=== PATIENT | male | born 1950 | race Caucasian/White ===

== ENCOUNTER 2016-07-30 10:08 | Emergency (ER) | payer OTHER, MEDICARE ==
[2016-07-30] MEDS ORDERED: HYDROmorphone 1 MG/ML Syringe IM ONE (10:56)
[2016-07-30] MEDS ORDERED: Ketorolac 60 MG/2 ML SDV IM ONE (10:57)
[2016-07-30 12:49] VITALS: BP 149/76
--- NOTE | 2016-08-08 01:01 | ER ---
Date of Service: 07/30/2016 SUBJECTIVE: Mr. Carney presents to the emergency room with complaints of neck pain that radiates into his right trapezius. The patient denies any recent trauma. He states that he has been experiencing intermittent low and mid back pain, but states that the neck pain is new. He states the discomfort is worse with rotation towards the right, but he is experiencing discomfort with both rotation to the right and to the left. Again, he denies any recent trauma. He has not been experiencing any fever or chills. He is not experiencing any paresthesias to his upper or lower extremities, difficulties with breathing or other worrisome signs or symptoms. PAST MEDICAL HISTORY: 1. Hypothyroidism. 2. Hepatitis. 3. Non-alcoholic fatty liver disease. 4. Glaucoma. 5. Cataracts. 6. Osteoarthritis with knee and shoulder replacement. 7. History of scoliosis and spinal stenosis and is status post laminectomy. 8. History of addiction. 9. Anxiety. 10.Panic attack. 11.History of SVT status post ablation. 12.Sleep apnea. MEDICATIONS: 1. Timoptic. 2. Sildenafil. 3. Multivitamin. 4. Levothyroxine. 5. Ativan. 6. Ibuprofen. 7. Zyrtec. ALLERGIES: NKDA. REVIEW OF SYSTEMS: The patient has increased discomfort with lateral bend and rotation to the right, but does have discomfort with any lateral bending, flexion, extension or rotation of the cervical spine. X-rayed, no obvious stepoff or deformity noted. He does have severe muscle spasm to the paraspinal muscles. Patella brachioradialis reflexes are 2+. Mobile Nurse strength is symmetrical at 5/5. PHYSICAL EXAMINATION: General: This is a 66-year-old male patient, who is in moderate amount of distress. Vital Signs: Blood pressure is 147/81, pulse rate is 94, temperature is 37.1, respiratory rate 20, O2 saturations 99%. Skin: Warm, pink, and dry. HEENT. Head is normocephalic and atraumatic. Neck: He does have severe muscle spasm to his paraspinal muscles of the cervical spine. No obvious deformity to the cervical spine itself. No obvious subluxation noted. Again, has increased discomfort with lateral bend to the right and turning his head to the right. He does have severe discomfort with flexion and extension of the cervical spine. No obvious step-offs or crepitus noted. The patellar and brachioradialis reflexes are 2+. EMERGENCY ROOM COURSE: The patient was given injection of Toradol 60 mg IM and Dilaudid 1 mg IM. He did report significant improvement in his discomfort. He remained stable under my care in the emergency room. ASSESSMENT: Cervical spinal pain. PLAN: Cervical MRI was ordered. Also, I did start him on physical therapy. The patient will continue with the oxycodone and Flexeril. He also is to start ibuprofen 600 mg every 8 hours. He was given group of exercises to perform to help with his cervical spinal pain and was told that Physical Therapy and Radiology will be contacting him for PT appointment as well as cervical spine MRI. I will follow up in the clinic in 7-10 days. All questions were answered. NADEGEK: 08/07/2016 21:04:42 MODL: 08/08/2016 00:36:05 /[id number]
== END 2016-07-30 11:45 ==
LOC: VM.ED 10:08
DX: M54.2 Cervicalgia (principal); M62.838 Other muscle spasm; E03.9 Hypothyroidism, unspecified; M19.90 Unspecified osteoarthritis, unspecified site; F41.9 Anxiety disorder, unspecified
CPT/HCPCS: 96372; 99283; J1170; J1885

== ENCOUNTER 2017-02-09 09:15 | Inpatient (IN) | payer OTHER, MEDICARE ==
[2017-02-09] MEDS: Lactated Ringers 1,000 ML IV SCH ×3 (09:52→22:54)
[2017-02-09] MEDS: LORazepam 2 MG/ML SDV IVPUSH PRN ×2 (10:08→14:20)
[2017-02-09 10:23] LABS: CHLORIDE,CL 104 mmol/L (98-107); SODIUM,NA 144 mmol/L (136-145)
[2017-02-09] MEDS ORDERED: ESZOPICLONE 2 MG PO PRN (10:26)
[2017-02-09] MEDS ORDERED: traZODone 50 MG Tab PO PRN (10:26)
[2017-02-09] MEDS ORDERED: Zolpidem 5 MG Tab PO PRN (10:26)
[2017-02-09] MEDS ORDERED: diphenhydrAMINE 25 MG Cap PO PRN (10:26)
[2017-02-09] MEDS ORDERED: SILDENAFIL CITRATE PO PRN (10:26)
[2017-02-09] MEDS ORDERED: LORazepam 0.5 MG Tab PO PRN (10:26)
[2017-02-09] MEDS ORDERED: Thiamine 200 MG/2 ML MDV IV SCH (10:45)
[2017-02-09] MEDS ORDERED: MVI, Adult with Vitamin K 10 ML SDV IV SCH (10:45)
[2017-02-09] MEDS ORDERED: Magnesium Sulfate/Water 2 GM in Premix Bag 1 BAG IV ONE (10:45)
[2017-02-09] MEDS ORDERED: FLU Vacc TS 2017-18 (65yr UP)/PF 180 MCG/0.5 ML Syringe IM ONE (10:45)
--- NOTE | 2017-02-09 10:52 | PCM.HP ---
"H&P History of Present Illness - General Date of Service: 02/09/17 Admit Problem/Dx: Admission Diagnosis/Problem Admission Diagnosis/Problem Alcohol withdrawal syndrome - History of Present Illness Initial Comments - Free Text/Narative: HPI HPI Comments:~Patient is in for alcohol dependence. ~He has been binge drinking for past week or so while has been gone, this is his usual pattern. ~He's been drinking probably 1-1/2 or more liters of wine per day. ~Occasionally he' ll mix with some hard alcoholic whiskey when she's gone. ~Maybe a couple beers daily as well. ~Last drink was 2:30 AM last night which he was taking for some withdrawal symptoms. ~Currently feels little bit shaky. ~Denies any depression anxiety or self harming ideation. ~He hasn't really had any long periods of sobriety until generally not drink every day but then he will drink morbid binge -type pattern, especially more heavily when is a town. ~Said significant withdrawals in the past but no seizures or labile hypertension. ~He was on acamprosate in the past but this made him feel fatigued. ~He thinks he may have received a prescription for naltrexone but he never took it. ~Last did tx in at [facility], didn't like it, felt locked-up and was with dissimilar people who had meth and heroin issues. ~Hasn't done much outpt tx since. Alcohol Problem~ The patient's primary symptoms include agitation. Pertinent negatives include no self-injury. Pertinent negatives include no fever. Medications MedicationsPriortoVisit Outpatient Medications Prior to Visit Medication Sig Dispense Refill aloe vera 470 MG CAPS Take 1 tablet by mouth 1 time per day zolpidem (AMBIEN) 5 mg tablet Take 1 tablet (5 mg) by mouth At bedtime as needed for insomnia 10 tablet 5 traZODone (DESYREL) 50 mg tablet Take 0.5 tablets (25 mg) by mouth At bedtime as needed (sleep) 45 tablet 3 clobetasol propionate (TEMOVATE) 0.05% solution Apply once or twice daily to scalp as needed for itching and rash 60 mL 5 eszopiclone (LUNESTA) 2 mg tablet TAKE 1 TABLET BY MOUTH AT B EDTIME NEEDED FOR INSOMN IA 30 tablet 0 betamethasone dipropionate (DIPROSONE) 0.05 % cream Apply to affected area 2 times a day 15 g 0 cyclobenzaprine (FLEXERIL) 5 mg tablet Take 1 tablet as bedtime as needed for muscle spasm 15 tablet 0 levothyroxine 25 mcg tablet Take 1 tablet (25 mcg total) by mouth 1 time a day in the morning 90 tablet 3 HYDROcodone-acetaminophen (NORCO) 5-325 mg tablet Take 1 tablet by mouth every 6 hours as needed for severe pain 25 tablet 0 magnesium oxide 250 MG TABS Take 250 mg by mouth 2 times a day diphenhydrAMINE (BENADRYL) 25 mg capsule Take 25 mg by mouth At bedtime as needed triamcinolone acetonide (KENALOG,ARISTOCORT) 0.1 % cream Apply 1 application to affected area 2 times a day For up to 2 weeks for flairs of rash 453.6 g 0 LORazepam (ATIVAN) 0.5 mg tablet Take 1 tablet (0.5 mg total) by mouth 4 times a day as needed for anxiety 10 tablet 0 sildenafil 20 mg tablet Take 2 tablets (40 mg total) by mouth 1 time a day as needed for other (Specify ) (ED) 90 tablet 0 ibuprofen (MOTRIN) 800 mg tablet Take 800 mg by mouth Every 4 hours as needed. Multiple Vitamin (MULTIVITAMIN) tablet Take 1 tablet by mouth 1 time per day. ~ 0 timolol maleate (TIMOPTIC) 0.5 % ophthalmic solution Place 1 drop into both eyes 2 times a day. No facility-administered medications prior to visit. Allergies No Known Allergies Problem List Patient Active Problem List Diagnosis Low back pain without sciatica Lumbar disc degeneration Lateral recess stenosis right L4-5 but no clinical radiculopathy S/p lumbar discectomy Scoliosis Flair started in December then Neurosurgery visit 03/22 no surgery planned Epidural 02/19 helped for 1 week MRI done 02/19 also Scoliosis DDD (degenerative disc disease), lumbar Lumbar sprain S/P lumbar discectomy L4-5 diskectomy on the L in [place] around 1999 Hypothyroid Hepatitis hx of false positive Hep C testing with pos AB but negative RNA test while in [place] 2011 Thrombocytopenia (HCC) Fatty liver Noted on US in 05/22 and also past US done in 02/17 History of alcohol dependence (HCC) See social hx for further details. ~ noticed probably around 2007. ~ Went through a treatment program [facility] and was able to quit in 11/19. ~Took Campral at one point 11/20 Hosp x [address] [facility], D/C on Campral 333 mg, 2 daily, he stopped it due to fatigue Allergic rhinitis Elevated blood pressure reading without diagnosis of hypertension With panic attacks Panic attacks Possibly related to alcohol withdrawl History of cardiac radiofrequency ablation Unsure of details was done in [place], trial of beta karla first. ~He is not sure if it was for a. 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 BACK SURGERY CATARACT EXTRACTION EYE SURGERY for a partially detached retina FOREIGN BODY RMVL Left 02/12/2016 Procedure: LEFT FOOT FOREIGN BODY REMOVAL;; ~Surgeon: Yo Fuller DPM KNEE SURGERY both knees meniscus surgeries MORTONS NEUROMA EXC Left 07/29/2016 Procedure: LEFT FOOT SKIN LESION EXCISION, LEFT 5TH METATARSAL PLANING;; ~ Surgeon: Yo Fuller DPM OSTEOTOMY Left 07/29/2016 Procedure: L;; ~Surgeon: Yo Fuller DPM SHOULDER SURGERY both shoulders SPINE SURGERY FamilyHistory Family History Problem Relation Age of Onset Cancer (not otherwise listed) Father melanoma Alcohol Abuse Brother Alcohol Abuse Brother Arthritis Mother Arthritis Maternal Grandmother Bladder Cancer Neg Hx Kidney Cancer Neg Hx Nephrolithiasis Neg Hx Prostate Cancer Neg Hx Testicular Cancer Neg Hx SocialHistory Social History Social History Marital status: Spouse name: N/A Number of children: N/A Years of education: N/A Occupational History Not on file. 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 ~ Marizol is president of [employer]. Moved to [place] in 2013 lived in [place] for 6 yrs prior and [place] prior to that. ~No children. ~Drinks daily had a DUI when living in [place] around 2006 did quit drinking after that but restarted to help with sleep. ~He had never been to alcohol treatment until 11/19 when he was a [facility] in [place]. ~His brother have similar problems with alcohol and his Grandfather's siblings had alcohol problems but his parents didn't. ROS Review of Systems Constitutional: Negative for chills~and fever. Cardiovascular: Negative for chest pain. Gastrointestinal: Negative for blood in stool. Neurological: Positive for tremors. Psychiatric/Behavioral: Positive for agitation~and sleep disturbance. Negative for self-injury. The patient is nervous/anxious. ~ Physical / Results BP 150/82 ~Pulse 105 ~Temp 97.6 F (36.4 C) (Tympanic) ~Wt 94.3 kg (208 lb) ~ SpO2 95% ~BMI 29.78 kg/m2|| Physical Exam~ Constitutional: He is oriented to person, place, and time. He appears well- developed~and well-nourished. No distress. Darrick, anxious~ Cardiovascular: Normal rate~and regular rhythm. ~ Pulmonary/Chest: Effort normal~and breath sounds normal. Neurological: He is alert~and oriented to person, place, and time. Mild tremor~ Skin: Skin is warm~and dry. He is not diaphoretic. Psychiatric: He has a normal mood and affect. His behavior is normal. Judgment~ and thought content~normal. Assessment / Plan Problem List Items Addressed This Visit~ None Plan: Alcohol intoxication, dependence and withdrawals Admit for CIWA and banana bag Start naltrexone Social work consult to discuss outpatient options Consider psych eval outpatient after dried out - Related Data Allergies/Adverse Reactions: Allergies Allergy/AdvReac Type Severity Reaction Status Date / Time No Known Drug Allergies Allergy Other Verified 09/29/15 10:37 Home Medications: Home Meds Levothyroxine 25 mcg PO DAILY 11/16/15 [History] Multivitamin [Multi-Vitamin Daily] 1 tab PO DAILY 11/16/15 [History] Sildenafil Citrate [Sildenafil] 40 mg PO DAILY PRN 11/16/15 [History] Timolol Maleate [Timoptic 0.5% Ophth Soln] 1 drop EYEBOTH BID 11/16/15 [History] Cyclobenzaprine [Flexeril] 5 mg PO BEDTIME PRN 07/30/16 [History] Acetaminophen/HYDROcodone [[place] 325-5 MG] 1 tab PO Q6H PRN 02/09/17 [History] Betamethasone Dipropionate [Diprosone 0.05% Crm] 1 applicful TOP BID 02/09/17 [ History] Eszopiclone [Lunesta] 2 mg PO BEDTIME PRN 02/09/17 [History] Ibuprofen [Motrin] 800 mg PO Q4H PRN 02/09/17 [History] LORazepam [Ativan] 0.5 mg PO QID PRN 02/09/17 [History] Levothyroxine 25 mcg PO ACBREAKFAST 02/09/17 [History] Magnesium 250 mg PO BID 02/09/17 [History] Zolpidem [Ambien] 5 mg PO BEDTIME PRN 02/09/17 [History] diphenhydrAMINE [Benadryl] 25 mg PO BEDTIME PRN 02/09/17 [History] traZODone 25 mg PO BEDTIME PRN 02/09/17 [History] Past Medical History HEENT History: Reports: Glaucoma Other Cardiovascular History: ablasion. elevated BP without diagnosis of HTN Respiratory History: Reports: Sleep Apnea Other Gastrointestinal History: fatty liver, hepatitis Musculoskeletal History: Reports: Back Pain, Chronic Psychiatric History: Reports: Addiction, Anxiety, Hallucinations, Panic Attack Other Psychiatric History: Alcohol dependence Endocrine/Metabolic History: Reports: Hypothyroidism Hematologic History: Reports: Other (See Below) Other Hematologic History: thrombocytopenia - Infectious Disease History Other Infectious Disease History: hepatitis-unknown type - Past Surgical History HEENT Surgical History: Reports: Cataract Surgery Neurological Surgical History: Reports: Discectomy, Lumbar Spine, Scoliosis Other Neurological Surgeries/Procedures: DDD Musculoskeletal Surgical History: Reports: Joint Replacement, Knee Replacement, Shoulder Surgery Social & Family History - Family History Family Medical History: Noncontributory - Tobacco Use Smoking Status *Q: Never Smoker Years of Tobacco use: 7 Used Tobacco, but Quit: No Second Hand Smoke Exposure: No - Caffeine Use Caffeine Use: Reports: None Other Caffeine Use: no caffine - Alcohol Use Days Per Week of Alcohol Use: 1 Number of Drinks Per Day: 1 Total Drinks Per Week: 1 Date of Last Drink: 02/09/17 Time of Last Drink: 02:30 - Recreational Drug Use Recreational Drug Use: No H&P Review of Systems - Review of Systems: Review Of Systems: See Below Exam - Exam Exam: See Below - Vital Signs Weight: 92.533 kg - Patient Data Lab Results Last 24 hrs: Laboratory Results - last 24 hr 02/09/17 02/09/17 Range/Units 09:53 09:53 WBC 6.7 (4.0-10.0) x10^3/uL RBC 4.52 (4.5-6.0) x10^6/uL Hgb 15.4 D (14.0-18.0) g/dL Hct 43.6 (40.0-52.0) % MCV 96.5 H D (78.0-93.0) fL MCH 34.1 H (26.0-32.0) pg MCHC 35.3 (32.0-36.0) g/dL RDW Coeff of Buzz 13.4 (10.0-15.0) % Plt Count 212 (130-400) x10^3/uL Neut % (Auto) 58.6 (50.0-80.0) % Lymph % (Auto) 29.7 (25.0-50.0) % [place] % (Auto) 9.0 (2.0-11.0) % Eos % (Auto) 2.4 (0.0-4.0) % Baso % (Auto) 0.3 (0.2-1.2) % Sodium 144 (136-145) mmol/L Potassium 4.1 (3.5-5.1) mmol/L Chloride 104 (98-107) mmol/L Carbon Dioxide 27 (21-32) mmol/L BUN 14 (7-18) mg/dL Creatinine 0.8 (0.70-1.30) mg/dL Est Cr Clr Drug Dosing 93.78 mL/min Estimated GFR (MDRD) > 60 Glucose 107 H (74-106) mg/dL Calcium 8.8 (8.5-10.1) mg/dL Corrected Calcium 8.72 (8.5-10.1) mg/dL Phosphorus 3.1 (2.6-4.7) mg/dL Magnesium 1.7 L (1.8-2.4) mg/dL Total Bilirubin 0.6 (0.2-1.0) mg/dL AST 32 (15-37) U/L ALT 32 (16-63) U/L Alkaline Phosphatase 97 (46-116) U/L Total Protein 7.5 (6.4-8.2) g/dL Albumin 4.1 (3.4-5.0) g/dL Globulin 3.4 Albumin/Globulin Ratio 1.21 Amylase 44 (25-115) U/L Ethyl Alcohol 258 H (0-3) mg/dL Result Diagrams: 02/09/17 09:53 02/09/17 09:53 *Q Meaningful Use (ADM) - VTE *Q VTE Criteria *Q: - Stroke *Q Stroke Criteria *Q: - AMI *Q AMI Criteria *Q: Problem List Initiated/Reviewed/Updated: Yes Orders Last 24hrs: Active Orders 24 hr Category Date Time Status Patient Status [ADT] Routine ADT 02/09/17 09:21 Active Patient Status [ADT] Routine ADT 02/09/17 10:43 Active Ambulate [RC] BID Care 02/09/17 10:44 Active Oxygen Therapy [RC] .PRN Care 02/09/17 10:43 Active Up With Assistance [RC] ASDIRECTED Care 02/09/17 10:43 Active VTE/DVT Education [RC] .PRN Care 02/09/17 10:43 Active Vital Signs [RC] 06,10,14,18,22,02 Care 02/09/17 10:43 Active Consult to Charging Crane Operator [CONS] Routine Cons 02/09/17 10:43 Active Regular Diet [DIET] Diet 02/09/17 Lunch Active BASIC METABOLIC PANEL,BMP [CHEM] AM Lab 02/10/17 05:11 Ordered DRUG SCREEN, URINE [URCHEM] Routine Lab 02/09/17 09:37 Uncollected MAGNESIUM [CHEM] AM Lab 02/10/17 05:11 Ordered UA W/O MICROSCOPIC [URIN] Routine Lab 02/09/17 09:35 Uncollected Betamethasone Dipropionate [Diprosone 0.05% Crm] Med 02/09/17 20:00 Ordered 1 applicful TOP BID Cyclobenzaprine [Flexeril] Med 02/09/17 10:26 Ordered 5 mg PO BEDTIME PRN Eszopiclone [Lunesta] Med 02/09/17 10:26 Ordered 2 mg PO BEDTIME PRN Ibuprofen [Motrin] Med 02/09/17 10:26 Ordered 800 mg PO Q4H PRN LORazepam [Ativan] Med 02/09/17 10:26 Ordered 0.5 mg PO QID PRN LORazepam [Ativan] Med 02/09/17 09:35 Active 1 mg IVPUSH Q4H PRN Lactated Ringers [Ringers, Lactated] 1,000 ml Med 02/09/17 09:45 Active IV ASDIRECTED Levothyroxine Med 02/10/17 07:00 Ordered 25 mcg PO ACBREAKFAST Levothyroxine Med 02/10/17 08:00 Ordered 25 mcg PO DAILY MVI, Adult with Vitamin K [Infuvite Adult] Med 02/09/17 10:45 Ordered 10 ml IV DAILY Magnesium Sulfate/Water [Magnesium Sulfate 2 GM in Med 02/09/17 10:45 Ordered Water 50 ML] 2 gm Premix Bag 1 bag IV ONETIME Magnesium [Magnesium] Med 02/09/17 20:00 Ordered 250 mg PO BID Multivitamin [Multi-Vitamin Daily] Med 02/10/17 08:00 Ordered 1 tab PO DAILY Sildenafil Citrate [Sildenafil] Med 02/09/17 10:26 Ordered 40 mg PO DAILY PRN Thiamine [Vitamin B-1] Med 02/09/17 10:45 Ordered 100 mg IV DAILY Timolol Maleate [Timoptic 0.5% Ophth Soln] Med 02/09/17 20:00 Ordered DOSE ml EYEBOTH BID Zolpidem [Ambien] Med 02/09/17 10:26 Ordered 5 mg PO BEDTIME PRN diphenhydrAMINE [Benadryl] Med 02/09/17 10:26 Ordered 25 mg PO BEDTIME PRN traZODone Med 02/09/17 10:26 Ordered 25 mg PO BEDTIME PRN Resuscitation Status Routine Resus Stat 02/09/17 10:43 Ordered Medication Orders Diphenhydramine HCl (Benadryl) 25 mg PO BEDTIME PRN PRN Reason: Sleep Lactated Ringer's (Ringers, Lactated) 1,000 mls @ 150 mls/hr IV ASDIRECTED ELEN Last Admin: 02/09/17 09:52 Dose: 150 mls/hr Magnesium Sulfate 2 gm/ Premix 50 mls @ 25 mls/hr IV ONETIME ONE Stop: 02/09/17 12:44 Levothyroxine Sodium (Levothyroxine) 25 mcg PO ACBREAKFAST ELEN Levothyroxine Sodium (Levothyroxine) 25 mcg PO DAILY ELEN Lorazepam (Ativan) 1 mg IVPUSH Q4H PRN PRN Reason: Withdrawal Symptoms Last Admin: 02/09/17 10:08 Dose: 1 mg Lorazepam (Ativan) 0.5 mg PO QID PRN PRN Reason: Anxiety Multivitamins/Minerals (Infuvite Adult) 10 ml IV DAILY ELEN Non-Formulary Medication (Betamethasone Dipropionate [Diprosone 0.05% Crm]) 1 applicful TOP BID ELEN Non-Formulary Medication (Cyclobenzaprine [Flexeril]) 5 mg PO BEDTIME PRN PRN Reason: Muscle Spasm Non-Formulary Medication (Eszopiclone [Lunesta]) 2 mg PO BEDTIME PRN PRN Reason: Insomnia Non-Formulary Medication (Ibuprofen [Motrin]) 800 mg PO Q4H PRN PRN Reason: Pain Non-Formulary Medication (Magnesium [Magnesium]) 250 mg PO BID ELEN Non-Formulary Medication (Multivitamin [Multi-Vitamin Daily]) 1 tab PO DAILY [facility]EN Non-Formulary Medication (Sildenafil Citrate [Sildenafil]) 40 mg PO DAILY PRN PRN Reason: Other Thiamine HCl (Vitamin B-1) 100 mg IV DAILY [facility] Timolol Maleate (Timoptic 0.5% Ophth Soln) ml EYEBOTH BID ELEN Trazodone HCl (Trazodone) 25 mg PO BEDTIME PRN PRN Reason: Sleep Zolpidem Tartrate (Ambien) 5 mg PO BEDTIME PRN PRN Reason: Sleep"
[2017-02-09] MEDS ORDERED: Cyclobenzaprine 10 MG Tab PO PRN (10:55)
[2017-02-09] MEDS ORDERED: Ibuprofen 200 MG Tab PO PRN (10:57)
[2017-02-09] MEDS ORDERED: VITAMIN K IV ONE ×3 (11:30)
[2017-02-09] MEDS ORDERED: MVI IV ONE ×3 (11:30)
[2017-02-09] MEDS ORDERED: NS IV ONE ×3 (11:30)
[2017-02-09] MEDS ORDERED: THIAMINE IV ONE ×3 (11:30)
[2017-02-09] MEDS ORDERED: KCL IV ONE ×3 (11:30)
[2017-02-09] MEDS ORDERED: Ondansetron 4 MG/2 ML SDV IVPUSH PRN (12:34)
[2017-02-09] MEDS ORDERED: LORazepam 2 MG/ML SDV IVPUSH PRN (17:55)
[2017-02-09] MEDS: Ondansetron 4 MG/2 ML SDV IVPUSH PRN ×2 (18:19→22:15)
[2017-02-09] MEDS ORDERED: LORazepam 2 MG/ML SDV ONE (18:22)
[2017-02-09] MEDS ORDERED: Ondansetron 4 MG/2 ML SDV ONE (18:22)
[2017-02-09] MEDS: Magnesium Oxide 400 MG Tab PO SCH (19:45)
[2017-02-09] MEDS ORDERED: Non-Formulary Medication 1 Each (Betamethasone Dipropionate [Diprosone 0.05% Crm] 1 APPLIC TOP SCH (20:00)
[2017-02-09] MEDS: Timolol Maleate 0.5% Ophth Soln 5 ML Bottle EYEBOTH SCH (20:11)
[2017-02-10] MEDS: Lactated Ringers 1,000 ML IV SCH (04:56)
[2017-02-10] MEDS ORDERED: Levothyroxine 25 MCG Tab PO SCH ×2 (07:00→08:00)
[2017-02-10 07:23] LABS: CHLORIDE,CL 102 mmol/L (98-107); SODIUM,NA 139 mmol/L (136-145)
[2017-02-10] MEDS ORDERED: Multivitamins with Iron/Calcium/Folic Acid/Minerals Tab PO SCH (08:00)
[2017-02-10] MEDS: Timolol Maleate 0.5% Ophth Soln 5 ML Bottle EYEBOTH SCH (08:09)
[2017-02-10] MEDS: Magnesium Oxide 400 MG Tab PO SCH (08:09)
[2017-02-10] MEDS ORDERED: FLU Vacc TS 2017-18 (65yr UP)/PF 180 MCG/0.5 ML Syringe IM ONE (09:00)
[2017-02-10 09:54] VITALS: BP 157/80
[2017-02-10] MEDS ORDERED: Magnesium Sulfate/Water 2 GM in Premix Bag 1 BAG IV ONE (09:58)
--- NOTE | 2017-02-10 12:57 | PCM.DCSUM1 ---
Discharge Summary - Hospital Course Free Text/Narrative:: Patient was admitted yesterday for alcohol intoxication, dependence, withdrawal. Had been drinking probably a couple liters of wine daily along with some fever and whiskey. Alcohol level was 250 8 in the AM on day of admission. Didn't have many symptoms of intoxication with this level indicative of significant tolerance. To get shaky and nauseous during his stay , improved with IV Ativan and Zofran when necessary. Electrolytes and other basic blood counts are pretty good. He drinks more when his is gone, tends not to have enough to do. Also drinking has been worse since he retired. He did inpatient treatment before but didn't find this for a beneficial. He is considering other outpatient options. He would like discharge home today under care of . Not having any shakiness or hallucinations. He has some Ativan he can use when necessary at home we will refill this. He's can follow- up with his AA sponsor. We'll start naltrexone to help with decreasing problem drinking. Follow-up with primary in about a week. 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 Start naltrexone to decrease drinking. F/u with sponsor, consider other outpatient CD options. Ativan as needed for withdrawl symptoms - Discharge Plan Home Medications: Home Meds Levothyroxine 25 mcg PO DAILY 11/16/15 [History] Multivitamin [Multi-Vitamin Daily] 1 tab PO DAILY 11/16/15 [History] Sildenafil Citrate [Sildenafil] 40 mg PO DAILY PRN 11/16/15 [History] Timolol Maleate [Timoptic 0.5% Ophth Soln] 1 drop EYEBOTH BID 11/16/15 [History] Cyclobenzaprine [Flexeril] 5 mg PO BEDTIME PRN 07/30/16 [History] Betamethasone Dipropionate [Diprosone 0.05% Crm] 1 applicful TOP BID 02/09/17 [ History] Eszopiclone [Lunesta] 2 mg PO BEDTIME PRN 02/09/17 [History] Ibuprofen [Motrin] 800 mg PO Q4H PRN 02/09/17 [History] LORazepam [Ativan] 0.5 mg PO QID PRN 02/09/17 [History] Levothyroxine 25 mcg PO ACBREAKFAST 02/09/17 [History] Magnesium 250 mg PO BID 02/09/17 [History] Zolpidem [Ambien] 5 mg PO BEDTIME PRN 02/09/17 [History] diphenhydrAMINE [Benadryl] 25 mg PO BEDTIME PRN 02/09/17 [History] traZODone 25 mg PO BEDTIME PRN 02/09/17 [History] - Discharge Summary/Plan Comment DC Time >30 min.: No - Patient Data Vitals - Most Recent: Last Vital Signs Temp 36.2 C 02/10/17 09:51 Pulse 69 02/10/17 09:51 Resp 16 02/10/17 09:51 BP 157/80 H 02/10/17 09:51 Pulse Ox 95 02/10/17 09:51 Weight - Most Recent: 92.533 kg I&O - Last 24 hours: Intake & Output 02/09/17 02/10/17 02/10/17 22:59 06:59 14:59 Intake Total 3776 1843 240 Output Total 325 100 Balance 3451 1843 140 Lab Results - Last 24 hrs: Laboratory Results - last 24 hr 02/09/17 02/09/17 02/10/17 Range/Units 14:18 14:18 07:01 Sodium 139 (136-145) mmol/L Potassium 3.7 (3.5-5.1) mmol/L Chloride 102 (98-107) mmol/L Carbon Dioxide 27 (21-32) mmol/L BUN 13 (7-18) mg/dL Creatinine 0.9 (0.70-1.30) mg/dL Est Cr Clr Drug Dosing 83.36 mL/min Estimated GFR (MDRD) > 60 Glucose 105 (74-106) mg/dL Calcium 8.6 (8.5-10.1) mg/dL Magnesium 1.7 L (1.8-2.4) mg/dL Urine Color Yellow (YELLOW) Urine Appearance Slightly cloudy H (CLEAR) Urine pH 5.5 (5.0-8.0) Ur Specific [place] 1.025 Urine Protein Negative (NEGATIVE) mg/dL Urine Glucose (UA) Negative (NEGATIVE) mg/dL Urine Ketones Negative (NEGATIVE) mg/dL Urine Occult Blood Trace-lysed H (NEGATIVE) Urine Nitrite Negative (NEGATIVE) Urine Bilirubin Negative (NEGATIVE) Urine Urobilinogen 0.2 (0.2) EU/dL Ur Leukocyte Esterase Negative (NEGATIVE) Urine Opiates Screen Negative (NEAGTIVE) Ur Buprenorphine Scrn Negative (NEGATIVE) Ur Oxycodone Screen Negative (NEGATIVE) Urine Methadone Screen Negative (NEGATIVE) Ur Barbiturates Screen Negative (NEGATIVE) Ur Tricyclics Screen Negative (NEGATIVE) Ur Amphetamine Screen Negative (NEGATIVE) U Methamphetamines Scrn Negative (NEGATIVE) Urine MDMA Screen Negative (NEGATIVE) U Benzodiazepines Scrn Negative (NEGATIVE) U Cocaine Metab Screen Negative (NEGATIVE) U Marijuana (THC) Screen Negative (NEGATIVE) Med Orders - Current: Current Medications Cyclobenzaprine HCl (Flexeril) 5 mg PO BEDTIME PRN PRN Reason: Muscle Spasm Diphenhydramine HCl (Benadryl) 25 mg PO BEDTIME PRN PRN Reason: Sleep Lactated Ringer's (Ringers, Lactated) 1,000 mls @ 150 mls/hr IV ASDIRECTED [facility] Last Admin: 02/10/17 04:56 Dose: 150 mls/hr Ibuprofen (Motrin) 800 mg PO Q4H PRN PRN Reason: Pain Last Admin: 02/10/17 05:01 Dose: 800 mg Levothyroxine Sodium (Levothyroxine) 25 mcg PO ACBREAKFAST [facility] Last Admin: 02/10/17 06:41 Dose: 25 mcg Lorazepam (Ativan) 0.5 mg PO QID PRN PRN Reason: Anxiety Last Admin: 02/09/17 12:48 Dose: 0.5 mg Lorazepam (Ativan) 1 mg IVPUSH Q2H PRN PRN Reason: Withdrawal Symptoms Last Admin: 02/09/17 18:20 Dose: 1 mg Magnesium Oxide (Magnesium Oxide) 400 mg PO BID [facility] Last Admin: 02/10/17 08:09 Dose: 400 mg Multivitamins/Minerals (Thera M Plus) 1 tab PO DAILY [facility] Last Admin: 02/10/17 08:09 Dose: 1 tab Ondansetron HCl (Zofran) 4 mg IVPUSH Q4H PRN PRN Reason: Nausea Last Admin: 02/09/17 22:15 Dose: 4 mg Timolol Maleate (Timoptic 0.5% Ophth Soln) 0 ml EYEBOTH BID [facility] Last Admin: 02/10/17 08:09 Dose: Not Given Trazodone HCl (Trazodone) 25 mg PO BEDTIME PRN PRN Reason: Sleep Last Admin: 02/09/17 22:55 Dose: 25 mg Zolpidem Tartrate (Ambien) 5 mg PO BEDTIME PRN PRN Reason: Sleep Last Admin: 02/10/17 00:07 Dose: 5 mg Discontinued Medications Magnesium Sulfate 2 gm/ Premix 50 mls @ 25 mls/hr IV ONETIME ONE Stop: 02/09/17 12:44 Last Admin: 02/09/17 11:08 Dose: 25 mls/hr Thiamine HCl 100 mg/Multivitamins/Minerals 10 ml/Potassium Chloride/Sodium Chloride 1,011 mls @ 150 mls/hr IV ONETIME ONE Stop: 02/09/17 18:14 Last Admin: 02/09/17 11:53 Dose: 150 mls/hr Magnesium Sulfate 2 gm/ Premix 50 mls @ 25 mls/hr IV ONETIME ONE Stop: 02/10/17 11:57 Last Admin: 02/10/17 10:18 Dose: 25 mls/hr Influenza Virus Vaccine (Fluzone High-Dose ) 180 mcg IM .ONCE ONE Stop: 02/10/17 09:01 Levothyroxine Sodium (Levothyroxine) 25 mcg PO DAILY [facility] Lorazepam (Ativan) 1 mg IVPUSH Q4H PRN PRN Reason: Withdrawal Symptoms Last Admin: 02/09/17 14:20 Dose: 1 mg Lorazepam (Ativan) Confirm Administered Dose 2 mg .ROUTE .STK-MED ONE Stop: 02/09/17 18:23 Last Admin: 02/09/17 18:23 Dose: Not Given Multivitamins/Minerals (Infuvite Adult) 10 ml IV DAILY [facility] Last Admin: 02/09/17 11:53 Dose: Not Given Non-Formulary Medication (Betamethasone Dipropionate [Diprosone 0.05% Crm]) 1 applicful TOP BID [place] Non-Formulary Medication (Eszopiclone [Lunesta]) 2 mg PO BEDTIME PRN PRN Reason: Insomnia Non-Formulary Medication (Sildenafil Citrate [Sildenafil]) 40 mg PO DAILY PRN PRN Reason: Other Ondansetron HCl (Zofran) 4 mg IVPUSH Q6H PRN PRN Reason: Nausea Last Admin: 02/09/17 12:51 Dose: 4 mg Ondansetron HCl (Zofran) Confirm Administered Dose 4 mg .ROUTE .STK-MED ONE Stop: 02/09/17 18:23 Last Admin: 02/09/17 18:23 Dose: Not Given Thiamine HCl (Vitamin B-1) 100 mg IV DAILY [facility] Last Admin: 02/09/17 11:53 Dose: Not Given *Q Meaningful Use (DIS) - VTE *Q VTE Criteria *Q: - Stroke *Q Stroke Criteria *Q: - AMI *Q AMI Criteria *Q:
== END 2017-02-10 14:10 | disposition home or self-care (01) | DRG 897 ==
LOC: VM.MS 09:21
PROVIDERS: ADMIT Family Medicine; ATTEND Family Medicine
DX: F10.229 Alcohol dependence with intoxication, unspecified (principal); F10.239 Alcohol dependence with withdrawal, unspecified; Z79.899 Other long term (current) drug therapy; M51.36 Other intervertebral disc degeneration, lumbar region; E03.9 Hypothyroidism, unspecified; K76.0 Fatty (change of) liver, not elsewhere classified; J30.9 Allergic rhinitis, unspecified; G47.33 Obstructive sleep apnea (adult) (pediatric); H40.9 Unspecified glaucoma; G47.00 Insomnia, unspecified; Z87.891 Personal history of nicotine dependence; Y90.1 Blood alcohol level of 20-39 mg/100 ml
CPT/HCPCS: 36415; 80048; 80053; 80305; 81003; 82150; 83735; 84100; 85025; A9270-GY; G0480; J2060; J2405; J3411; J3475; J3480; J7120